=== PATIENT | female | born 1940 | race Caucasian/White ===

== ENCOUNTER 2020-04-22 09:27 | Inpatient (IN) | payer OTHER ==
[2020-04-22 10:25] VITALS: BMI 36.1
[2020-04-22 11:03] LABS: BASO % 0.3 % (0-2.0); EOS % 0.1 % (0-4.5); HEMATOCRIT 35.4 % (32.4-45.2); HEMOGLOBIN 11.8 GM/dL (10.7-15.3); LYMPH % 20.8 % (8-40); MCH 30.4 pg (25.7-33.7); MCHC 33.5 g/dl (32.0-36.0); MEAN CELL VOLUME 90.6 fl (80-96); MEAN PLT VOLUME 9.1 fl (7.5-11.1); MONO % 5.9 % (3.8-10.2); NEUT % 72.9 % (42.8-82.8); PLATELET COUNT 241 K/MM3 (134-434); RDW 13.9 % (11.6-15.6); WHITE BLOOD COUNT 6.4 K/mm3 (4.0-10.0)
[2020-04-22 11:09] LABS: INR 1.03 (0.83-1.09); PROTHROMBIN TIME (PATIENT) 12.7 SEC (9.7-13.0)
[2020-04-22] MEDS ORDERED: DEXAMETHASONE SOD PHOSPHATE 4 MG/1 ML VIAL IVPUSH ONE (11:10)
[2020-04-22] MEDS ORDERED: ALBUTEROL SO4 HFA INHALER IH ONE (11:10)
[2020-04-22 11:11] LABS: ACTIVATED PTT 28.5 SECONDS (25.2-36.5)
[2020-04-22] MEDS ORDERED: DEXAMETHASONE SOD PHOSPHATE 10 MG/1 ML VIAL ONE (11:17)
[2020-04-22 11:23] LABS: POTASSIUM 3.5 mmol/L (3.5-5.1)
[2020-04-22 11:25] LABS: CALCIUM 7.7 mg/dL (8.5-10.1)
[2020-04-22 11:26] LABS: BLOOD UREA NITROGEN 19.1 mg/dL (7-18)
[2020-04-22] MEDS ORDERED: ACETAMINOPHEN INJECTION 100 ML IVPB ONE (11:27)
[2020-04-22 11:28] LABS: BILIRUBIN,DIRECT 0.1 mg/dL (0.0-0.2)
[2020-04-22 11:29] LABS: CREATININE 0.9 mg/dL (0.55-1.3)
[2020-04-22] MEDS ORDERED: ACETAMINOPHEN 1000 MG/100 ML VIAL (NON FORMULARY) IVPB ONE (11:29)
[2020-04-22 11:30] LABS: BILIRUBIN,TOTAL 0.3 mg/dL (0.2-1); TOT PROT 6.4 g/dl (6.4-8.2)
[2020-04-22 11:57] LABS: EPI CELLS 12 /uL (0-25.1); HYALINE CASTS 0 /uL (0-3.1); PH,URINE 5.5 (5.0-8.0); URINE APPEARANCE CLEAR; URINE BACTERIA 355 /uL (0-1359); URINE BILIRUBIN NEGATIVE (NEGATIVE); URINE COLOR YELLOW; URINE GLUCOSE (UA) NEGATIVE (NEGATIVE); URINE KETONE NEGATIVE (NEGATIVE); URINE LEUK ESTERASE NEGATIVE (NEGATIVE); URINE NITRITE NEGATIVE (NEGATIVE); URINE PROTEIN 1+ (NEGATIVE); URINE RBC 26 /uL (0-23.9); URINE UROBILINOGEN 0.2 mg/dL (0.2-1.0); URINE WBC 2 /uL (0-25.8)
[2020-04-22 12:20] LABS: YEAST NON SEEN (NEGATIVE)
[2020-04-22] MEDS ORDERED: REMDESIVIR 200 MG in SODIUM CHLORIDE 210 ML IVPB ONE (18:00)
[2020-04-22] MEDS: ENOXAPARIN NA (PORCINE) 80 MG/0.8 ML DISP.SYRIN SQ SCH (21:03)
[2020-04-22] MEDS: BUDESONIDE/FORMETEROL FUMARATE 160/4.5 mcg INHALER IH SCH (21:03)
[2020-04-22] MEDS: ALBUTEROL SO4 HFA INHALER IH PRN (21:03)
[2020-04-22] MEDS: MONTELUKAST NA 10 MG TABLET PO SCH (21:04)
[2020-04-23] MEDS ORDERED: IBUPROFEN 400 MG TABLET (FP) PO ONE (02:08)
[2020-04-23 07:00] LABS: BASO % 0.2 % (0-2.0); HEMATOCRIT 33.5 % (32.4-45.2); HEMOGLOBIN 11.3 GM/dL (10.7-15.3); LYMPH % 28.4 % (8-40); MCH 30.7 pg (25.7-33.7); MCHC 33.8 g/dl (32.0-36.0); MEAN CELL VOLUME 90.8 fl (80-96); MEAN PLT VOLUME 8.6 fl (7.5-11.1); MONO % 4.8 % (3.8-10.2); NEUT % 66.6 % (42.8-82.8); PLATELET COUNT 225 K/MM3 (134-434); RBC 3.69 M/mm3 (3.60-5.2); RDW 14.1 % (11.6-15.6); WHITE BLOOD COUNT 5.8 K/mm3 (4.0-10.0)
[2020-04-23 07:18] LABS: POTASSIUM 3.5 mmol/L (3.5-5.1)
[2020-04-23 07:21] LABS: CALCIUM 7.6 mg/dL (8.5-10.1)
[2020-04-23 07:22] LABS: ALBUMIN 2.8 g/dl (3.4-5.0); BLOOD UREA NITROGEN 22.2 mg/dL (7-18); MAGNESIUM 1.8 mg/dL (1.8-2.4)
[2020-04-23 07:25] LABS: CREATININE 0.9 mg/dL (0.55-1.3)
[2020-04-23 07:26] LABS: BILIRUBIN,TOTAL 0.3 mg/dL (0.2-1)
[2020-04-23] MEDS ORDERED: PT OWN MED DRAWER 7, Y5N ONE ×2 (08:34→12:16)
[2020-04-23] MEDS: DEXAMETHASONE SOD PHOSPHATE 4 MG/1 ML VIAL IVPUSH SCH ×2 (08:44→11:52)
[2020-04-23] MEDS: LOSARTAN 50MG/HCTZ 12.5MG 1 TAB PO SCH ×2 (08:45→14:27)
[2020-04-23] MEDS: ENOXAPARIN NA (PORCINE) 80 MG/0.8 ML DISP.SYRIN SQ SCH ×3 (08:45→21:18)
[2020-04-23] MEDS: BUDESONIDE/FORMETEROL FUMARATE 160/4.5 mcg INHALER IH SCH ×2 (11:53→21:18)
[2020-04-23] MEDS: ALBUTEROL SO4 HFA INHALER IH PRN (14:28)
[2020-04-23] MEDS: REMDESIVIR 100 MG in SODIUM CHLORIDE 230 ML IVPB SCH (17:24)
[2020-04-23] MEDS ORDERED: MAG HYDROX/AL HYDROX/SIMETH -MYLANTA- ORAL SUSPENSION PO ONE (20:55)
[2020-04-23] MEDS: MONTELUKAST NA 10 MG TABLET PO SCH (21:18)
[2020-04-23] MEDS: FAMOTIDINE 20 MG TABLET PO SCH (21:18)
[2020-04-24 07:15] LABS: HEMATOCRIT 39.1 % (32.4-45.2); HEMOGLOBIN 13.2 GM/dL (10.7-15.3); MCH 30.5 pg (25.7-33.7); MCHC 33.8 g/dl (32.0-36.0); MEAN CELL VOLUME 90.4 fl (80-96); MEAN PLT VOLUME 8.7 fl (7.5-11.1); PLATELET COUNT 291 K/MM3 (134-434); RBC 4.33 M/mm3 (3.60-5.2); RDW 13.9 % (11.6-15.6); WHITE BLOOD COUNT 5.7 K/mm3 (4.0-10.0)
[2020-04-24 07:30] LABS: POTASSIUM 3.6 mmol/L (3.5-5.1)
[2020-04-24 07:34] LABS: ALBUMIN 3.3 g/dl (3.4-5.0); CALCIUM 8.3 mg/dL (8.5-10.1)
[2020-04-24 07:37] LABS: CREATININE 0.9 mg/dL (0.55-1.3)
[2020-04-24 07:39] LABS: BILIRUBIN,TOTAL 0.4 mg/dL (0.2-1); TOT PROT 7.2 g/dl (6.4-8.2)
[2020-04-24 09:35] LABS: ERYTHROCYTE SEDIMENTATION RATE 59 mm/hr (0-30)
[2020-04-24] MEDS ORDERED: PT OWN MED DRAWER 7, Y5N ONE (09:39)
[2020-04-24] MEDS: FAMOTIDINE 20 MG TABLET PO SCH ×2 (09:48→22:06)
[2020-04-24] MEDS: ENOXAPARIN NA (PORCINE) 80 MG/0.8 ML DISP.SYRIN SQ SCH ×2 (09:48→22:06)
[2020-04-24] MEDS: DEXAMETHASONE SOD PHOSPHATE 4 MG/1 ML VIAL IVPUSH SCH (09:48)
[2020-04-24] MEDS: LOSARTAN 50MG/HCTZ 12.5MG 1 TAB PO SCH (09:48)
[2020-04-24] MEDS: BUDESONIDE/FORMETEROL FUMARATE 160/4.5 mcg INHALER IH SCH ×2 (09:50→22:07)
[2020-04-24] MEDS ORDERED: guaiFENesin/D-M SUGAR-FREE/ACLHOL-FREE 118 ML BOTTLE PO PRN (10:32)
[2020-04-24] MEDS ORDERED: guaiFENesin/D-METHORPHAN HB 10 ML UNIT-DOSE CUPS PO PRN (13:19)
[2020-04-24] MEDS: REMDESIVIR 100 MG in SODIUM CHLORIDE 230 ML IVPB SCH (17:16)
[2020-04-24] MEDS: MONTELUKAST NA 10 MG TABLET PO SCH (22:06)
[2020-04-24] MEDS: guaiFENesin/CODEINE 5 ML UNIT-DOSE CUPS PO PRN (22:06)
[2020-04-25 08:34] LABS: HEMATOCRIT 36.5 % (32.4-45.2); HEMOGLOBIN 11.9 GM/dL (10.7-15.3); MCH 30.1 pg (25.7-33.7); MCHC 32.7 g/dl (32.0-36.0); MEAN CELL VOLUME 91.9 fl (80-96); MEAN PLT VOLUME 9.3 fl (7.5-11.1); PLATELET COUNT 279 K/MM3 (134-434); RBC 3.97 M/mm3 (3.60-5.2); RDW 13.9 % (11.6-15.6); WHITE BLOOD COUNT 4.2 K/mm3 (4.0-10.0)
[2020-04-25 08:51] LABS: POTASSIUM 3.6 mmol/L (3.5-5.1)
[2020-04-25 08:57] LABS: CALCIUM 7.9 mg/dL (8.5-10.1)
[2020-04-25 08:58] LABS: ALBUMIN 2.8 g/dl (3.4-5.0); BLOOD UREA NITROGEN 25.3 mg/dL (7-18)
[2020-04-25 08:59] LABS: MAGNESIUM 1.9 mg/dL (1.8-2.4); PHOSPHOROUS 2.9 mg/dL (2.5-4.9)
[2020-04-25 09:01] LABS: BILIRUBIN,TOTAL 0.4 mg/dL (0.2-1); CREATININE 0.8 mg/dL (0.55-1.3); TOT PROT 6.2 g/dl (6.4-8.2)
[2020-04-25] MEDS: DEXAMETHASONE SOD PHOSPHATE 4 MG/1 ML VIAL IVPUSH SCH (10:16)
[2020-04-25] MEDS: ENOXAPARIN NA (PORCINE) 80 MG/0.8 ML DISP.SYRIN SQ SCH ×2 (10:17→21:07)
[2020-04-25] MEDS: FAMOTIDINE 20 MG TABLET PO SCH ×2 (10:17→21:07)
[2020-04-25] MEDS: LOSARTAN 50MG/HCTZ 12.5MG 1 TAB PO SCH (10:17)
[2020-04-25] MEDS: BUDESONIDE/FORMETEROL FUMARATE 160/4.5 mcg INHALER IH SCH ×2 (10:18→22:44)
[2020-04-25] MEDS ORDERED: MAG HYDROX/AL HYDROX/SIMETH 30 ML UNIT-DOSE CUP PO ONE (15:51)
[2020-04-25] MEDS: REMDESIVIR 100 MG in SODIUM CHLORIDE 230 ML IVPB SCH (17:58)
[2020-04-25] MEDS: MONTELUKAST NA 10 MG TABLET PO SCH (21:07)
[2020-04-25] MEDS: guaiFENesin/CODEINE 5 ML UNIT-DOSE CUPS PO PRN (21:12)
[2020-04-25] MEDS ORDERED: MELATONIN 5 MG TABLETS PO ONE (22:28)
[2020-04-26 08:08] LABS: HEMOGLOBIN 13.5 GM/dL (10.7-15.3); MCH 30.6 pg (25.7-33.7); MCHC 33.7 g/dl (32.0-36.0); MEAN CELL VOLUME 90.6 fl (80-96); MEAN PLT VOLUME 8.6 fl (7.5-11.1); PLATELET COUNT 330 K/MM3 (134-434); RBC 4.42 M/mm3 (3.60-5.2); RDW 13.7 % (11.6-15.6); WHITE BLOOD COUNT 5.3 K/mm3 (4.0-10.0)
[2020-04-26 08:21] LABS: POTASSIUM 3.8 mmol/L (3.5-5.1)
[2020-04-26 08:28] LABS: CALCIUM 8.4 mg/dL (8.5-10.1)
[2020-04-26 08:31] LABS: BILIRUBIN,TOTAL 0.5 mg/dL (0.2-1)
[2020-04-26 08:35] LABS: CREATININE 0.9 mg/dL (0.55-1.3); TOT PROT 6.9 g/dl (6.4-8.2)
[2020-04-26] MEDS ORDERED: PT OWN MED DRAWER 7, Y5N ONE (09:37)
[2020-04-26] MEDS: ENOXAPARIN NA (PORCINE) 80 MG/0.8 ML DISP.SYRIN SQ SCH (10:08)
[2020-04-26] MEDS: DEXAMETHASONE SOD PHOSPHATE 4 MG/1 ML VIAL IVPUSH SCH (10:08)
[2020-04-26] MEDS: FAMOTIDINE 20 MG TABLET PO SCH (10:08)
[2020-04-26] MEDS: guaiFENesin/CODEINE 5 ML UNIT-DOSE CUPS PO PRN (10:08)
[2020-04-26] MEDS: BUDESONIDE/FORMETEROL FUMARATE 160/4.5 mcg INHALER IH SCH (10:09)
[2020-04-26] MEDS: LOSARTAN 50MG/HCTZ 12.5MG 1 TAB PO SCH (14:25)
[2020-04-26 15:04] VITALS: BP 128/79; PULSE 59; TEMP 97.9
[2020-04-26] MEDS: REMDESIVIR 100 MG in SODIUM CHLORIDE 230 ML IVPB SCH ×2 (15:24→17:49)
[2020-04-27] MEDS ORDERED: LOSARTAN 50MG/HCTZ 12.5MG 1 TAB PO SCH (10:00)
== END 2020-04-26 18:58 | disposition home or self-care (01) | DRG 177 ==
LOC: JER 09:27 → JERBED 11:11 → J7W 14:24
PROVIDERS: ADMIT Internal Medicine; ATTEND Internal Medicine
PROC: XW033E5 Introduction of Remdesivir Anti-infective into Peripheral Vein, Percutaneous Approach, New Technology Group 5 (ICD-10-PCS; 2020-04-22)
PROC: XW13325 Transfusion of Convalescent Plasma (Nonautologous) into Peripheral Vein, Percutaneous Approach, New Technology Group 5 (ICD-10-PCS; principal; 2020-04-23)
DX: U07.1 COVID-19 (principal); J12.89 Other viral pneumonia; J96.00 Acute respiratory failure, unspecified whether with hypoxia or hypercapnia; R09.02 Hypoxemia; I10 Essential (primary) hypertension; E78.5 Hyperlipidemia, unspecified; K76.0 Fatty (change of) liver, not elsewhere classified; Z77.22 Contact with and (suspected) exposure to environmental tobacco smoke (acute) (chronic)
CPT/HCPCS: 36415; 36430; 71045-TC-FY; 71250-TC; 80053; 81003; 82248; 82550; 82553; 82728; 83605; 83615; 83735; 84100; 84484; 85025; 85027; 85379; 85610; 85651; 85730; 86140; 86850; 86900; 86901; 87040; 87086; 87186; 87804; 93005; 93010; 94761; 97116-GP; 97161-GP; 99285-25; C9399; C9803; J0131; P9017; U0003

== ENCOUNTER 2020-04-29 11:09 | Inpatient (IN) | payer OTHER ==
[2020-04-29] MEDS ORDERED: LACTATED RINGERS SOLUTION 1000 ML INFUS.BAG IV ONE (11:58)
[2020-04-29 13:06] LABS: VENOUS BASE EXCESS 0.5 mmol/L (-2-2); VENOUS O2 SATURATION 39.3 % (70-80); VENOUS PCO2 43.7 mmHg (38-52); VENOUS PH 7.388 (7.310-7.410)
[2020-04-29 13:17] LABS: BASO % 0.1 % (0-2.0); EOS % 0.2 % (0-4.5); HEMATOCRIT 40.9 % (32.4-45.2); HEMOGLOBIN 13.7 GM/dL (10.7-15.3); LYMPH % 4.2 % (8-40); MCH 30.6 pg (25.7-33.7); MCHC 33.6 g/dl (32.0-36.0); MEAN CELL VOLUME 90.9 fl (80-96); MEAN PLT VOLUME 9.3 fl (7.5-11.1); MONO % 3.9 % (3.8-10.2); NEUT % 91.6 % (42.8-82.8); PLATELET COUNT 352 K/MM3 (134-434); WHITE BLOOD COUNT 12.7 K/mm3 (4.0-10.0)
[2020-04-29 13:28] LABS: CHLORIDE 101 mmol/L (98-107); POTASSIUM 4.4 mmol/L (3.5-5.1); SODIUM 136 mmol/L (136-145)
[2020-04-29 13:30] LABS: CALCIUM 8.3 mg/dL (8.5-10.1)
[2020-04-29 13:31] LABS: ALBUMIN 3.2 g/dl (3.4-5.0); ANION GAP 8 MMOL/L (8-16); BLOOD UREA NITROGEN 29.3 mg/dL (7-18); CO2 27 mmol/L (21-32); GLUCOSE,RANDOM 140 mg/dL (74-106); INR 1.08 (0.83-1.09)
[2020-04-29 13:34] LABS: CREATININE 1.1 mg/dL (0.55-1.3); SGOT/AST 45 U/L (15-37); SGPT/ALT 55 U/L (13-61)
[2020-04-29 13:35] LABS: LDH 570 U/L (84-246)
[2020-04-29 13:36] LABS: ALK PHOS 73 U/L (45-117); BILIRUBIN,TOTAL 0.9 mg/dL (0.2-1); TOT PROT 7.5 g/dl (6.4-8.2)
[2020-04-29 13:53] LABS: PH,URINE 6.5 (5.0-8.0); URINE APPEARANCE CLEAR; URINE BILIRUBIN NEGATIVE (NEGATIVE); URINE COLOR YELLOW; URINE GLUCOSE (UA) NEGATIVE (NEGATIVE); URINE KETONE NEGATIVE (NEGATIVE); URINE LEUK ESTERASE NEGATIVE (NEGATIVE); URINE NITRITE NEGATIVE (NEGATIVE); URINE PROTEIN NEGATIVE (NEGATIVE)
[2020-04-29 14:11] LABS: ANISOCYTOSIS 0; MACROCYTOSIS 0; PLATELET ESTIMATE NORMAL
[2020-04-29] MEDS ORDERED: DEXAMETHASONE SOD PHOSPHATE 4 MG/1 ML VIAL ONE (15:46)
[2020-04-29] MEDS: DEXAMETHASONE SOD PHOSPHATE 4 MG/1 ML VIAL IVPUSH SCH (15:51)
[2020-04-29] MEDS ORDERED: AZITHROMYCIN IVPB 500 MG in DEXTROSE 5%-WATER - 250 ML IVPB ONE (16:14)
[2020-04-29] MEDS ORDERED: CEFTRIAXONE 1 GM in DEXTROSE 5%-WATER - 100 ML IVPB ONE (16:14)
[2020-04-29] MEDS ORDERED: AZITHROMYCIN IVPB 500 MG/250 ML BAG IVPB ONE (16:28)
[2020-04-29] MEDS ORDERED: CEFTRIAXONE 1 GM/50 ML BAG ONE (16:28)
[2020-04-29] MEDS ORDERED: ALBUTEROL SO4 0.083% IH SOL 2.5 MG/3 ML VIAL.NEB. NEB PRN (17:45)
[2020-04-29] MEDS ORDERED: ALBUTEROL SO4 HFA INHALER IH PRN (18:25)
[2020-04-29] MEDS ORDERED: PATIENT'S OWN MEDICATION (NON-FORMULARY) (Icosapent Ethyl [Vascepa] 1 GM Capsule) PO SCH (22:00)
[2020-04-29] MEDS ORDERED: ASCORBIC ACID 500 MG TABLET (FP) ONE (22:47)
[2020-04-29] MEDS ORDERED: APIXABAN 5 MG TABLET ONE (22:47)
[2020-04-29] MEDS ORDERED: FAMOTIDINE 20 MG TABLET ONE (22:47)
[2020-04-29] MEDS ORDERED: MONTELUKAST NA 10 MG TABLET ONE (22:48)
[2020-04-29] MEDS ORDERED: ZINC SULFATE 220 MG CAPSULE (FP) ONE (22:48)
[2020-04-29] MEDS: ZINC SULFATE 220 MG CAPSULE (FP) PO SCH (22:51)
[2020-04-29] MEDS: APIXABAN 5 MG TABLET PO SCH (22:51)
[2020-04-29] MEDS: FAMOTIDINE 20 MG TABLET PO SCH (22:51)
[2020-04-29] MEDS: ASCORBIC ACID 500 MG TABLET (FP) PO SCH (22:51)
[2020-04-29] MEDS: MONTELUKAST NA 10 MG TABLET PO SCH (22:51)
[2020-04-30] MEDS ORDERED: MELATONIN 1 MG TABLET PO ONE (00:08)
[2020-04-30] MEDS: BUDESONIDE/FORMETEROL FUMARATE 80/4.5 mcg INHALER IH SCH ×3 (00:18→22:05)
[2020-04-30 06:41] VITALS: BMI 36.3
[2020-04-30] MEDS: DEXAMETHASONE SOD PHOSPHATE 4 MG/1 ML VIAL IVPUSH SCH (13:09)
[2020-04-30] MEDS: LOSARTAN 50MG/HCTZ 12.5MG 1 TAB PO SCH ×2 (13:10→13:22)
[2020-04-30] MEDS: ASPIRIN COATED 81 MG TABLET.EC PO SCH (13:10)
[2020-04-30] MEDS: ZINC SULFATE 220 MG CAPSULE (FP) PO SCH ×2 (13:10→21:44)
[2020-04-30] MEDS: CHOLECALCIFEROL (VIT D3) 1,000 UNIT (25 MCG) TABLET PO SCH (13:10)
[2020-04-30] MEDS: APIXABAN 5 MG TABLET PO SCH ×2 (13:10→21:44)
[2020-04-30] MEDS: ASCORBIC ACID 500 MG TABLET (FP) PO SCH ×2 (13:10→21:45)
[2020-04-30] MEDS: FAMOTIDINE 20 MG TABLET PO SCH ×2 (13:11→21:45)
[2020-04-30 13:14] LABS: HEMATOCRIT 36.4 % (32.4-45.2); HEMOGLOBIN 12.3 GM/dL (10.7-15.3); MCH 30.8 pg (25.7-33.7); MCHC 33.8 g/dl (32.0-36.0); MEAN CELL VOLUME 91.1 fl (80-96); MEAN PLT VOLUME 9.2 fl (7.5-11.1); PLATELET COUNT 326 K/MM3 (134-434); RDW 13.7 % (11.6-15.6); WHITE BLOOD COUNT 8.5 K/mm3 (4.0-10.0)
[2020-04-30 13:30] LABS: POTASSIUM 4.4 mmol/L (3.5-5.1)
[2020-04-30 13:32] LABS: CALCIUM 8.2 mg/dL (8.5-10.1)
[2020-04-30 13:33] LABS: ALBUMIN 2.8 g/dl (3.4-5.0); MAGNESIUM 2.1 mg/dL (1.8-2.4)
[2020-04-30 13:37] LABS: BILIRUBIN,TOTAL 0.7 mg/dL (0.2-1); CREATININE 0.9 mg/dL (0.55-1.3); PHOSPHOROUS 3.2 mg/dL (2.5-4.9); TOT PROT 6.6 g/dl (6.4-8.2)
[2020-04-30] MEDS ORDERED: DEXTROSE 5%-WATER - 50 ML IVPB ONE (15:21)
[2020-04-30] MEDS ORDERED: cefTRIAXone SODIUM 1 GM VIAL ONE (15:21)
[2020-04-30] MEDS: CEFTRIAXONE 1 GM in DEXTROSE 5%-WATER - 50 ML IVPB SCH (15:26)
[2020-04-30] MEDS: DOXYCYCLINE HYCLATE 100 MG CAPSULE PO SCH (17:59)
[2020-04-30] MEDS: MELATONIN 5 MG TABLETS PO PRN (21:45)
[2020-04-30] MEDS: MONTELUKAST NA 10 MG TABLET PO SCH (21:45)
[2020-05-01] MEDS ORDERED: oxyCODONE HCL 5 MG TABLET PO ONE (00:43)
[2020-05-01] MEDS ORDERED: ACETAMINOPHEN 325 MG TABLET (FP) PO ONE (00:44)
[2020-05-01] MEDS: INSULIN SLIDING SCALE (NOVOLOG) 1 VIAL SQ SCH ×3 (06:16→16:52)
[2020-05-01 07:31] LABS: BASO % 0.1 % (0-2.0); HEMATOCRIT 36.4 % (32.4-45.2); HEMOGLOBIN 12.3 GM/dL (10.7-15.3); LYMPH % 10.9 % (8-40); MCH 30.7 pg (25.7-33.7); MCHC 33.8 g/dl (32.0-36.0); MEAN PLT VOLUME 9.5 fl (7.5-11.1); PLATELET COUNT 348 K/MM3 (134-434); RDW 13.8 % (11.6-15.6)
[2020-05-01 07:52] LABS: POTASSIUM 4.5 mmol/L (3.5-5.1)
[2020-05-01 07:54] LABS: MAGNESIUM 2.1 mg/dL (1.8-2.4)
[2020-05-01 07:59] LABS: PHOSPHOROUS 3.4 mg/dL (2.5-4.9)
[2020-05-01] MEDS ORDERED: cefTRIAXone SODIUM 1 GM VIAL ONE (10:02)
[2020-05-01] MEDS ORDERED: DEXTROSE 5%-WATER - 50 ML IVPB ONE (10:02)
[2020-05-01] MEDS: DOXYCYCLINE HYCLATE 100 MG CAPSULE PO SCH ×2 (10:09→17:50)
[2020-05-01] MEDS: ASCORBIC ACID 500 MG TABLET (FP) PO SCH ×2 (10:09→22:10)
[2020-05-01] MEDS: APIXABAN 5 MG TABLET PO SCH ×2 (10:09→22:10)
[2020-05-01] MEDS: LOSARTAN POTASSIUM 50 MG TABLET PO SCH (10:09)
[2020-05-01] MEDS: ZINC SULFATE 220 MG CAPSULE (FP) PO SCH ×2 (10:09→22:10)
[2020-05-01] MEDS: CEFTRIAXONE 1 GM in DEXTROSE 5%-WATER - 50 ML IVPB SCH (10:09)
[2020-05-01] MEDS: DEXAMETHASONE SOD PHOSPHATE 4 MG/1 ML VIAL IVPUSH SCH (10:09)
[2020-05-01] MEDS: CHOLECALCIFEROL (VIT D3) 1,000 UNIT (25 MCG) TABLET PO SCH (10:09)
[2020-05-01] MEDS: FAMOTIDINE 20 MG TABLET PO SCH ×2 (10:10→22:10)
[2020-05-01] MEDS: ASPIRIN COATED 81 MG TABLET.EC PO SCH (10:10)
[2020-05-01] MEDS: BUDESONIDE/FORMETEROL FUMARATE 80/4.5 mcg INHALER IH SCH ×2 (10:10→22:10)
[2020-05-01] MEDS ORDERED: SODIUM CHLORIDE FOR INHALATION 3 ML VIAL.NEB IH PRN (12:48)
[2020-05-01] MEDS ORDERED: SODIUM CHLORIDE NASAL SPRAY 44 ML BOTTLE NS PRN (13:22)
[2020-05-01] MEDS ORDERED: MELATONIN 5 MG TABLETS PO ONE (21:56)
[2020-05-01] MEDS: MONTELUKAST NA 10 MG TABLET PO SCH (22:10)
[2020-05-02] MEDS: INSULIN SLIDING SCALE (NOVOLOG) 1 VIAL SQ SCH ×3 (06:09→17:30)
[2020-05-02 07:11] LABS: HEMATOCRIT 35.3 % (32.4-45.2); HEMOGLOBIN 12.2 GM/dL (10.7-15.3); MCH 31.3 pg (25.7-33.7); MCHC 34.7 g/dl (32.0-36.0); MEAN CELL VOLUME 90.4 fl (80-96); MEAN PLT VOLUME 9.1 fl (7.5-11.1); PLATELET COUNT 337 K/MM3 (134-434); RDW 13.5 % (11.6-15.6); WHITE BLOOD COUNT 6.3 K/mm3 (4.0-10.0)
[2020-05-02 07:15] LABS: POTASSIUM 4.4 mmol/L (3.5-5.1)
[2020-05-02 07:19] LABS: CALCIUM 8.1 mg/dL (8.5-10.1)
[2020-05-02 07:20] LABS: ALBUMIN 2.6 g/dl (3.4-5.0); BLOOD UREA NITROGEN 32.5 mg/dL (7-18)
[2020-05-02 07:24] LABS: BILIRUBIN,TOTAL 0.6 mg/dL (0.2-1)
[2020-05-02] MEDS ORDERED: DEXTROSE 5%-WATER - 50 ML IVPB ONE (09:54)
[2020-05-02] MEDS ORDERED: cefTRIAXone SODIUM 1 GM VIAL ONE (09:54)
[2020-05-02] MEDS: ASCORBIC ACID 500 MG TABLET (FP) PO SCH ×2 (10:08→21:20)
[2020-05-02] MEDS: CEFTRIAXONE 1 GM in DEXTROSE 5%-WATER - 50 ML IVPB SCH (10:08)
[2020-05-02] MEDS: ASPIRIN COATED 81 MG TABLET.EC PO SCH (10:09)
[2020-05-02] MEDS: LOSARTAN POTASSIUM 50 MG TABLET PO SCH (10:09)
[2020-05-02] MEDS: DOXYCYCLINE HYCLATE 100 MG CAPSULE PO SCH ×2 (10:09→17:18)
[2020-05-02] MEDS: APIXABAN 5 MG TABLET PO SCH ×2 (10:09→21:20)
[2020-05-02] MEDS: ZINC SULFATE 220 MG CAPSULE (FP) PO SCH ×2 (10:09→21:21)
[2020-05-02] MEDS: FAMOTIDINE 20 MG TABLET PO SCH ×2 (10:09→21:21)
[2020-05-02] MEDS: CHOLECALCIFEROL (VIT D3) 1,000 UNIT (25 MCG) TABLET PO SCH (10:09)
[2020-05-02] MEDS: BUDESONIDE/FORMETEROL FUMARATE 80/4.5 mcg INHALER IH SCH ×2 (10:10→21:23)
[2020-05-02] MEDS: DEXAMETHASONE SOD PHOSPHATE 4 MG/1 ML VIAL IVPUSH SCH (10:44)
[2020-05-02] MEDS: MELATONIN 5 MG TABLETS PO PRN (21:20)
[2020-05-02] MEDS: MONTELUKAST NA 10 MG TABLET PO SCH (21:20)
[2020-05-03] MEDS: INSULIN SLIDING SCALE (NOVOLOG) 1 VIAL SQ SCH ×3 (06:00→17:40)
[2020-05-03 08:14] LABS: HEMATOCRIT 35.4 % (32.4-45.2); MCH 30.9 pg (25.7-33.7); MCHC 33.8 g/dl (32.0-36.0); MEAN CELL VOLUME 91.4 fl (80-96); MEAN PLT VOLUME 8.7 fl (7.5-11.1); PLATELET COUNT 294 K/MM3 (134-434); RBC 3.87 M/mm3 (3.60-5.2); RDW 13.7 % (11.6-15.6); WHITE BLOOD COUNT 4.7 K/mm3 (4.0-10.0)
[2020-05-03 08:28] LABS: POTASSIUM 4.6 mmol/L (3.5-5.1)
[2020-05-03 08:31] LABS: ALBUMIN 2.6 g/dl (3.4-5.0); BLOOD UREA NITROGEN 31.2 mg/dL (7-18); CALCIUM 7.8 mg/dL (8.5-10.1)
[2020-05-03 08:36] LABS: BILIRUBIN,TOTAL 0.9 mg/dL (0.2-1)
[2020-05-03] MEDS ORDERED: DEXTROSE 5%-WATER - 50 ML IVPB ONE (09:15)
[2020-05-03] MEDS ORDERED: cefTRIAXone SODIUM 1 GM VIAL ONE (09:15)
[2020-05-03] MEDS: CHOLECALCIFEROL (VIT D3) 1,000 UNIT (25 MCG) TABLET PO SCH (09:25)
[2020-05-03] MEDS: OMEGA-3 ACID ETHYL ESTERS (FATTY-ACIDS) 1 GM CAPSULE (FP) PO SCH ×2 (09:25→23:01)
[2020-05-03] MEDS: DOXYCYCLINE HYCLATE 100 MG CAPSULE PO SCH (09:25)
[2020-05-03] MEDS: FAMOTIDINE 20 MG TABLET PO SCH ×2 (09:25→23:01)
[2020-05-03] MEDS: APIXABAN 5 MG TABLET PO SCH ×2 (09:25→23:01)
[2020-05-03] MEDS: ASPIRIN COATED 81 MG TABLET.EC PO SCH (09:25)
[2020-05-03] MEDS: ZINC SULFATE 220 MG CAPSULE (FP) PO SCH ×2 (09:25→23:01)
[2020-05-03] MEDS: ASCORBIC ACID 500 MG TABLET (FP) PO SCH ×2 (09:25→23:01)
[2020-05-03] MEDS: CEFTRIAXONE 1 GM in DEXTROSE 5%-WATER - 50 ML IVPB SCH (09:26)
[2020-05-03] MEDS: LOSARTAN POTASSIUM 50 MG TABLET PO SCH (09:26)
[2020-05-03] MEDS: BUDESONIDE/FORMETEROL FUMARATE 80/4.5 mcg INHALER IH SCH ×2 (09:27→23:01)
[2020-05-03] MEDS: DEXAMETHASONE SOD PHOSPHATE 4 MG/1 ML VIAL IVPUSH SCH (09:30)
[2020-05-03] MEDS: MONTELUKAST NA 10 MG TABLET PO SCH (23:01)
[2020-05-03] MEDS: MELATONIN 5 MG TABLETS PO PRN (23:01)
[2020-05-04] MEDS ORDERED: MELATONIN 5 MG TABLETS PO ONE (00:01)
[2020-05-04] MEDS: INSULIN SLIDING SCALE (NOVOLOG) 1 VIAL SQ SCH (06:00)
[2020-05-04 06:54] LABS: HEMOGLOBIN 12.2 GM/dL (10.7-15.3); MCH 30.7 pg (25.7-33.7); MCHC 33.8 g/dl (32.0-36.0); MEAN CELL VOLUME 90.8 fl (80-96); MEAN PLT VOLUME 9.3 fl (7.5-11.1); PLATELET COUNT 284 K/MM3 (134-434); RBC 3.97 M/mm3 (3.60-5.2); RDW 13.7 % (11.6-15.6); WHITE BLOOD COUNT 5.7 K/mm3 (4.0-10.0)
[2020-05-04 07:11] LABS: POTASSIUM 4.6 mmol/L (3.5-5.1)
[2020-05-04 07:18] LABS: BLOOD UREA NITROGEN 30.4 mg/dL (7-18); CALCIUM 7.9 mg/dL (8.5-10.1)
[2020-05-04 07:19] LABS: CREATININE 0.9 mg/dL (0.55-1.3)
[2020-05-04] MEDS ORDERED: LACTOBACILLUS ACIDOPHILUS 1 TABLET PO SCH (10:00)
[2020-05-04] MEDS: CHOLECALCIFEROL (VIT D3) 1,000 UNIT (25 MCG) TABLET PO SCH (10:34)
[2020-05-04] MEDS: ZINC SULFATE 220 MG CAPSULE (FP) PO SCH (10:35)
[2020-05-04] MEDS: ASCORBIC ACID 500 MG TABLET (FP) PO SCH (10:35)
[2020-05-04] MEDS: LOSARTAN POTASSIUM 50 MG TABLET PO SCH (10:35)
[2020-05-04] MEDS: BUDESONIDE/FORMETEROL FUMARATE 80/4.5 mcg INHALER IH SCH (10:36)
[2020-05-04] MEDS: OMEGA-3 ACID ETHYL ESTERS (FATTY-ACIDS) 1 GM CAPSULE (FP) PO SCH (10:36)
[2020-05-04] MEDS: ASPIRIN COATED 81 MG TABLET.EC PO SCH (10:36)
[2020-05-04] MEDS: DEXAMETHASONE SOD PHOSPHATE 4 MG/1 ML VIAL IVPUSH SCH (10:36)
[2020-05-04] MEDS: FAMOTIDINE 20 MG TABLET PO SCH (10:36)
[2020-05-04] MEDS: APIXABAN 5 MG TABLET PO SCH (10:36)
[2020-05-04 15:18] VITALS: BP 129/84; PULSE 68; TEMP 98.6
[2020-05-04] MEDS ORDERED: MELATONIN 1 MG TABLET PO ONE (23:04)
== END 2020-05-04 15:05 | disposition home health service (06) | DRG 177 ==
LOC: JER 11:09 → JERBED 14:28 → J4W 04-30 05:48
PROVIDERS: ADMIT Internal Medicine; ATTEND Internal Medicine
DX: U07.1 COVID-19 (principal); J12.89 Other viral pneumonia; J96.01 Acute respiratory failure with hypoxia; I10 Essential (primary) hypertension; E78.5 Hyperlipidemia, unspecified; J45.30 Mild persistent asthma, uncomplicated; R05 Cough; R73.03 Prediabetes
CPT/HCPCS: 36415; 71045-TC-FY; 71250-TC; 80048; 80053; 81003; 82550; 82553; 82728; 82803; 82962; 83036; 83605; 83615; 83735; 84100; 84132; 84484; 85025; 85027; 85379; 85610; 85651; 85730; 86140; 87040; 87086; 93005; 93010; 94761; 97116-GP; 97161-GP; 99285-25; C9803; U0003